=== PATIENT | female | born 1985 | race American Indian/Alaskan Native ===

== ENCOUNTER 2017-04-29 16:07 | Inpatient (IN) | payer MEDICAID ==
--- NOTE | 2017-04-29 16:40 | C.PDOC ---
History Of Present Illness 31 yr old female presents to the ER for suicidal ideation and auditory hallucinations for the past 1 week. Patient states she wanted to take a scarf and wrap it around her neck and states the voices are telling her to hurt herself. Patient reports she has been clean for more then 1 month. Denies HI, fever, chest pain, SOB, nausea, vomiting, weakness or numbness. Time Seen by Provider: 04/29/17 16:28 Chief Complaint (Nursing): Psychiatric Evaluation History Per: Patient History/Exam Limitations: no limitations Onset/Duration Of Symptoms: Days (1 week) Current Symptoms Are (Timing): Still Present Past Medical History Reviewed: Historical Data, Nursing Documentation, Vital Signs Vital Signs: Last Vital Signs Temp 98.8 F 04/29/17 16:10 Pulse 85 04/29/17 16:10 Resp 16 04/29/17 16:10 BP 135/90 04/29/17 16:10 Pulse Ox 98 04/29/17 18:51 - Medical History PMH: Bipolar Disorder Family History: States: No Known Family Hx - Social History Hx Alcohol Use: No Hx Substance Use: No - Immunization History Hx Tetanus Toxoid Vaccination: No Hx Influenza Vaccination: No Hx Pneumococcal Vaccination: No Review Of Systems Except As Marked, All Systems Reviewed And Found Negative. Constitutional: Negative for: Fever Cardiovascular: Negative for: Chest Pain Respiratory: Negative for: Shortness of Breath Gastrointestinal: Negative for: Nausea, Vomiting Neurological: Negative for: Weakness, Numbness Psych: Positive for: Suicidal ideation Physical Exam - Physical Exam Appears: Non-toxic, No Acute Distress Skin: Warm, Dry, No Rash Head: Atraumatic, Normacephalic Oral Mucosa: Moist Cardiovascular: Rhythm Regular, No Murmur Respiratory: Normal Breath Sounds, No Rales, No Rhonchi, No Stridor, No Wheezing Gastrointestinal/Abdominal: Normal Exam Back: Normal Inspection Extremity: Normal ROM, No Swelling Neurological/Psych: Oriented x3, Normal Speech, Normal Motor ED Course And Treatment - Laboratory Results Result Diagrams: 04/29/17 17:11 04/29/17 17:11 O2 Sat by Pulse Oximetry: 98 (RA) Pulse Ox Interpretation: Normal Progress Note: Patient is cleared for crisis. Medical Decision Making Medical Decision Making: PLAN: * Alcohol Serum * Drug Screen * CBC * CMP * Urinalysis case s/o to Dr. Razo pending urine preg and pysch evaluation. Disposition - Disposition Disposition Time: 19:00 Condition: STABLE Forms: [facility] ([place]) - Clinical Impression Clinical Impression: Moderate major depression, single episode - Scribe Statement The provider has reviewed the documentation as recorded by the Scribe Adriana Wilder Provider Attestation: All medical record entries made by the Scribe were at my direction and personally dictated by me. I have reviewed the chart and agree that the record accurately reflects my personal performance of the history, physical exam, medical decision making, and the department course for this patient. I have also personally directed, reviewed, and agree with the discharge instructions and disposition. Physician Patient Turnover - . Patient Signed Over To: Romel Razo Handoff Comments: pending urine preg and crisis evaluation.
[2017-04-29 17:14] LABS: BASO % 0.7 % (0.0-2.0); EOS % 0.8 % (0.0-4.0); HEMOGLOBIN 12.6 g/dL (11.0-16.0); LYMPH # 1.8 K/uL (1.0-4.3); LYMPH % 29.4 % (20.0-40.0); MEAN CORPUSCULAR HGB CONC 33.3 g/dL (33.0-37.0); MEAN PLATELET VOLUME 7.6 fL (7.2-11.7); MONO # 0.4 K/uL (0.0-0.8); MONO % 5.7 % (0.0-10.0); NEUT # 3.9 K/uL (1.8-7.0); NEUT % 63.4 % (50.0-75.0); RBC 3.95 Mil/uL (3.80-5.20); RED CELL DISTRIBUTION WIDTH 14.1 % (11.5-14.5); WHITE BLOOD COUNT 6.1 K/uL (4.8-10.8)
[2017-04-29 17:28] LABS: ALB/GLOB RATIO 1.1 (1.0-2.1); ALBUMIN 4.1 g/dL (3.5-5.0); ALT/SGPT 18 U/L (9-52); AST/SGOT 21 U/L (14-36); BLOOD UREA NITROGEN 12 mg/dL (7-17); CALCIUM 8.6 mg/dl (8.6-10.4); GFR AFRICAN-AMERICAN > 60; GFR NON-AFRICAN AMERICAN > 60
[2017-04-29 17:51] LABS: BARBITURATES, UR NEGATIVE (NEGATIVE); BENZODIAZEPINES, UR NEGATIVE (NEGATIVE); OPIATES, UR NEGATIVE (NEGATIVE); PHENCYCLIDINE, UR NEGATIVE (NEGATIVE); URINE BILIRUBIN NEGATIVE (NEGATIVE); URINE BLOOD 3+ (NEGATIVE); URINE CLARITY Hazy (Clear); URINE COLOR Red (YELLOW); URINE GLUCOSE (UA) NORMAL (Normal); URINE LEUKOCYTE ESTERASE NEG Leu/uL (Negative); URINE NITRATE NEGATIVE (NEGATIVE); URINE PROTEIN 2+ mg/dL (NEGATIVE); URINE UROBILINOGEN NORMAL mg/dL (0.2-1.0)
--- NOTE | 2017-04-29 20:35 | PCM.BM ---
<Laura Meredith - Last Filed: 04/29/17 20:31> Treatment Plan Problems - Problems identified on initial assessmt depression Date Initiated: 04/29/17 Time Initiated: 20:35 Assessment reference: NA Status: Active Treatment assets and liabiliti Patient Assests: adapts well, cooperative, educated, motivated, ADL independent , good support system, cognitively intact Patient Liabilities: substance abuse <Som Browning - Last Filed: 05/03/17 10:45> - Diagnosis (1) Bipolar 1 disorder Status: Acute Interventions: 05/03/17 10:45 * Assess/adjust medications daily and /or as needed * See patient on an individual basis 7x/week to assess level of manic behaviors and stability * Discuss risks, benefits, side effects and alternatives of medications * <Waleska Dumont - Last Filed: 05/04/17 10:55> Family Contact Family involvement: Famliy/SO not involved - Goals for Treatment Patient goals for treatment: "I want to go back to rehab." Discharge/Continuing Care - Education Needs Education Needs: Patient Medication, Patient Coping Skills, Patient Placement options, Patient Community resources - Discharge Discharge Criteria: Tolerates medication w/o severe side effects, Reduction of target symptoms Discharge to:: Substance Abuse Rehab - Treatment Team Participation Discussed with Family/SO: No Was Patient/Family/SO present at Treatment Team Meeting: Yes
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
--- NOTE | 2017-05-01 16:58 | PCM.PYCHPN ---
Psychiatric Progress Note - Psychiatric Progress Note Patient seen today, length of contact: 15 minutes Patient Chief Complaint: I'm feeling better Problems Identified/Issues Discussed: Patient was seen. Chart was reviewed important content noted. Nurse input received that patient slept well last night. Patient has no new complaints. No events overnight. Patient slept well and is eating well. Patient still has depressive symptoms. Denies suicidal or homicidal ideations. Patient does not report hallucinations. No delusions elicited. No paranoia elicited. Patient has remained in good clinical and behavioral control. Symptoms are improving, but needs more time to stabilize. Patient is finding medications beneficial and would like to continue with treatment plan. Patient appreciated that treatment team is trying to help. Medication Change: Yes Medical Record Reviewed: Yes Mental Status Examination - Cognitive Function Orientation: Person, Place, Situation, Time Memory: Intact Attention: WNL Concentration: WNL Association: WNL Fund of Knowledge: [facility] Decription of patient's judgement and insights: good/good. - Mood Mood: Depressed, Anxious - Affect Affect: Constricted - Speech Speech: Appropriate - Formal Thought Process Formal Thought Process: No Impairment Psychotic Thoughts and Behaviors: denied - Suicidal Ideation Suicidal Ideation: No Plan: denied - Homicidal Ideation Homicidal Ideation: No Plan: denied Goal/Treatment Plan - Goal/Treatment Plan Need for Continued Stay: Discharge may exacerbated symptoms, Severe functional impairment Progress Toward Problem(s) and Goals/Treatment Plan: Continue Abilify increase Prozac 80 mg po daily increaseRemeron As needed meds Psycho-education was provided regarding medication, benefits, risks, and alternate medication was offered. Pt verbalized understanding and agree with the treatment plan. Attend groups and activities [place] for abstinence and CBT for relapse prevention Support and psychoeducation Refer to after care Estimated Date of D/C: 05/03/17 - Smoking Cessation Smoking Cessation Initiated: Yes
--- NOTE | 2017-05-02 11:50 | PCM.PYCHPN ---
Psychiatric Progress Note - Psychiatric Progress Note Patient seen today, length of contact: 15 minutes Patient Chief Complaint: I am feeling more calm here Problems Identified/Issues Discussed: Patient was seen. Chart was reviewed important content noted. Nurse input received that patient slept well last night. Patient has no new complaints. No events overnight. Patient slept well and is eating well. Patient still has depressive symptoms.Patient states that her anxiety is calmer here than at [facility] [place] because there are less people. Denies suicidal or homicidal ideations. Patient does not report hallucinations. No delusions elicited. No paranoia elicited. Patient has remained in good clinical and behavioral control. Symptoms are improving, but needs more time to stabilize. Patient is finding medications beneficial and would like to continue with treatment plan. Patient appreciated that treatment team is trying to help Medication Change: Yes Medical Record Reviewed: Yes Mental Status Examination - Cognitive Function Orientation: Person, Place, Situation, Time Memory: Intact Attention: WNL Concentration: Poor Association: WNL Fund of Knowledge: Poor - Mood Mood: Depressed, Anxious - Affect Affect: Constricted - Speech Speech: Appropriate - Formal Thought Process Formal Thought Process: Hallucinations - Suicidal Ideation Suicidal Ideation: No - Homicidal Ideation Homicidal Ideation: No Goal/Treatment Plan - Goal/Treatment Plan Need for Continued Stay: Discharge may exacerbated symptoms, Severe functional impairment Progress Toward Problem(s) and Goals/Treatment Plan: Bipolar disorder, mre depressive with psychotic features. CURT Continue Abilify Start Prozac 20 mg po daily Continue Remeron As needed meds Psycho-education was provided regarding medication, benefits, risks, and alternate medication was offered. Pt verbalized understanding and agree with the treatment plan. Attend groups and activities [place] for abstinence and CBT for relapse prevention Support and psychoeducation Refer to after care Estimated Date of D/C: 05/09/17 - Smoking Cessation Smoking Cessation Initiated: No
--- NOTE | 2017-05-04 10:13 | PCM.PYCHPN ---
Psychiatric Progress Note - Psychiatric Progress Note Patient seen today, length of contact: 15 minutes Patient Chief Complaint: I am feeling more calm here Problems Identified/Issues Discussed: Patient was seen. Chart was reviewed important content noted. Nurse input received that patient slept well last night. Patient has no new complaints. No events overnight. Patient slept well and is eating well. Patient still has depressive symptoms.Patient states that her anxiety is calmer here than at [facility] [place] because there are less people. Denies suicidal or homicidal ideations. Patient does not report hallucinations. No delusions elicited. No paranoia elicited. Patient has remained in good clinical and behavioral control. Symptoms are improving, but needs more time to stabilize. Patient is finding medications beneficial and would like to continue with treatment plan. Patient appreciated that treatment team is trying to help Medication Change: Yes (start lithium, increase risperdal) Medical Record Reviewed: Yes Mental Status Examination - Cognitive Function Orientation: Person, Place, Situation, Time Memory: Intact Attention: WNL Concentration: Poor Association: Loose Fund of Knowledge: WNL - Mood Mood: Depressed, Anxious - Affect Affect: Constricted - Speech Speech: Appropriate - Formal Thought Process Formal Thought Process: Hallucinations, Delusions, Paranoia - Suicidal Ideation Suicidal Ideation: No - Homicidal Ideation Homicidal Ideation: No Goal/Treatment Plan - Goal/Treatment Plan Need for Continued Stay: Discharge may exacerbated symptoms, Severe functional impairment Progress Toward Problem(s) and Goals/Treatment Plan: Bipolar disorder, mre depressive with psychotic features. CURT Start Prozac 20 mg po daily Continue Remeron As needed meds Psycho-education was provided regarding medication, benefits, risks, and alternate medication was offered. Pt verbalized understanding and agree with the treatment plan. Attend groups and activities [place] for abstinence and CBT for relapse prevention Support and psychoeducation Refer to after care Estimated Date of D/C: 05/03/17
--- NOTE | 2017-05-04 11:00 | PCM.PYCHPN ---
Psychiatric Progress Note - Psychiatric Progress Note Patient seen today, length of contact: 15 minutes Patient Chief Complaint: I am feeling more calm here Problems Identified/Issues Discussed: Patient was seen. Chart was reviewed important content noted. Nurse input received that patient slept well last night. Patient has no new complaints. No events overnight. Patient slept well and is eating well. Patient still has depressive symptoms.Patient states that her anxiety is calmer here than at [facility] because there are less people. Denies suicidal or homicidal ideations. Patient does not report hallucinations. No delusions elicited. No paranoia elicited. Patient has remained in good clinical and behavioral control. Symptoms are improving, but needs more time to stabilize. Patient is finding medications beneficial and would like to continue with treatment plan. Patient appreciated that treatment team is trying to help Medication Change: Yes Medical Record Reviewed: Yes Mental Status Examination - Cognitive Function Orientation: Person, Place, Situation, Time Memory: Intact Attention: WNL Concentration: WNL Association: WNL Fund of Knowledge: WNL - Mood Mood: Depressed, Anxious - Affect Affect: Constricted - Speech Speech: Appropriate - Formal Thought Process Formal Thought Process: No Impairment - Suicidal Ideation Suicidal Ideation: No - Homicidal Ideation Homicidal Ideation: No Goal/Treatment Plan - Goal/Treatment Plan Need for Continued Stay: Discharge may exacerbated symptoms, Severe functional impairment Progress Toward Problem(s) and Goals/Treatment Plan: Bipolar disorder, mre depressive with psychotic features. CURT Continue Abilify Start Prozac 20 mg po daily Continue Remeron As needed meds Psycho-education was provided regarding medication, benefits, risks, and alternate medication was offered. Pt verbalized understanding and agree with the treatment plan. Attend groups and activities [place] for abstinence and CBT for relapse prevention Support and psychoeducation Refer to after care Estimated Date of D/C: 05/03/17
--- NOTE | 2017-05-05 16:06 | PCM.PYCHPN ---
Psychiatric Progress Note - Psychiatric Progress Note Patient seen today, length of contact: 15 minutes Patient Chief Complaint: I am feeling more calm here Problems Identified/Issues Discussed: Patient was seen. Chart was reviewed important content noted. Nurse input received that patient slept well last night. Patient has no new complaints. No events overnight. Patient slept well and is eating well. Patient still has depressive symptoms.Patient states that her anxiety is calmer here than at [place] because there are less people. Denies suicidal or homicidal ideations. Patient does not report hallucinations. No delusions elicited. No paranoia elicited. Patient has remained in good clinical and behavioral control. Symptoms are improving, but needs more time to stabilize. Patient is finding medications beneficial and would like to continue with treatment plan. Patient appreciated that treatment team is trying to help Medication Change: Yes (start lithium, increase risperdal) Medical Record Reviewed: Yes Mental Status Examination - Cognitive Function Orientation: Person, Place, Situation, Time Memory: Intact Attention: WNL Concentration: WNL Association: WNL Fund of Knowledge: WNL - Mood Mood: Depressed, Anxious - Affect Affect: Constricted - Speech Speech: Appropriate - Formal Thought Process Formal Thought Process: No Impairment - Suicidal Ideation Suicidal Ideation: No - Homicidal Ideation Homicidal Ideation: No Goal/Treatment Plan - Goal/Treatment Plan Need for Continued Stay: Discharge may exacerbated symptoms, Severe functional impairment Progress Toward Problem(s) and Goals/Treatment Plan: Bipolar disorder, mre depressive with psychotic features. CURT Start Prozac 20 mg po daily Continue Remeron As needed meds Psycho-education was provided regarding medication, benefits, risks, and alternate medication was offered. Pt verbalized understanding and agree with the treatment plan. Attend groups and activities [place] for abstinence and CBT for relapse prevention Support and psychoeducation Refer to after care Estimated Date of D/C: 05/03/17
[2017-05-07 06:49] VITALS: RESP 18; TEMP 98.1
[2017-05-08 10:41] VITALS: O2SAT 98
--- NOTE | 2017-05-08 13:35 | PCM.PYCHPN ---
Psychiatric Progress Note - Psychiatric Progress Note Patient seen today, length of contact: 15 minutes Patient Chief Complaint: I am feeling more calm here Problems Identified/Issues Discussed: Patient was seen. Chart was reviewed important content noted. Nurse input received that patient slept well last night. Patient has no new complaints. No events overnight. Patient slept well and is eating well. Patient still has depressive symptoms.Patient states that her anxiety is calmer here than at [place] because there are less people. Denies suicidal or homicidal ideations. Patient does not report hallucinations. No delusions elicited. No paranoia elicited. Patient has remained in good clinical and behavioral control. Symptoms are improving, but needs more time to stabilize. Patient is finding medications beneficial and would like to continue with treatment plan. Patient appreciated that treatment team is trying to help Medication Change: Yes (stop prozac) Medical Record Reviewed: Yes Mental Status Examination - Cognitive Function Orientation: Person, Place, Situation, Time Memory: Intact Attention: WNL Concentration: WNL Association: WNL Fund of Knowledge: WNL - Mood Mood: Depressed, Anxious - Affect Affect: Constricted - Speech Speech: Appropriate - Formal Thought Process Formal Thought Process: No Impairment - Suicidal Ideation Suicidal Ideation: No - Homicidal Ideation Homicidal Ideation: No Goal/Treatment Plan - Goal/Treatment Plan Need for Continued Stay: Discharge may exacerbated symptoms, Severe functional impairment Progress Toward Problem(s) and Goals/Treatment Plan: Bipolar disorder, mre depressive with psychotic features. CURT Start Prozac 20 mg po daily Continue Remeron As needed meds Psycho-education was provided regarding medication, benefits, risks, and alternate medication was offered. Pt verbalized understanding and agree with the treatment plan. Attend groups and activities [place] for abstinence and CBT for relapse prevention Support and psychoeducation Refer to after care Estimated Date of D/C: 05/03/17
[2017-05-08 16:39] VITALS: PULSE 83
[2017-05-09 09:30] VITALS: BP 103/67
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
== END 2017-05-09 11:54 | disposition home or self-care (01) | DRG 430 ==
LOC: C.ER 16:07 → C.5E 19:24
PROVIDERS: ADMIT Psychiatry & Neurology Psychiatry; ATTEND Psychiatry & Neurology Psychiatry
PROC: GZHZZZZ Group Psychotherapy (ICD-10-PCS; principal; 2017-04-29)
PROC: GZ58ZZZ Individual Psychotherapy, Cognitive-Behavioral (ICD-10-PCS; 2017-04-29)
PROC: GZ56ZZZ Individual Psychotherapy, Supportive (ICD-10-PCS; 2017-04-29)
DX: F31.5 Bipolar disorder, current episode depressed, severe, with psychotic features (principal); R45.851 Suicidal ideations; F41.1 Generalized anxiety disorder

== ENCOUNTER 2017-06-15 09:41 | Inpatient (IN) | payer MEDICAID ==
[2017-06-15 10:02] VITALS: BMI 28.4
--- NOTE | 2017-06-15 10:36 | C.PDOC ---
History Of Present Illness 31 year old female brought in for psychiatric evaluation. Reports taking her psychiatric medications. Has been having suicidal thoughts on and off for 1 month. No physical complaints at this time. PMD: None Time Seen by Provider: 06/15/17 09:52 Chief Complaint (Nursing): Psychiatric Evaluation History Per: Patient History/Exam Limitations: no limitations Onset/Duration Of Symptoms: Days (x 1 month) Current Symptoms Are (Timing): Still Present Associated Symptoms: Suicidal Thoughts Past Medical History Reviewed: Historical Data, Nursing Documentation, Vital Signs Vital Signs: Last Vital Signs Temp 99.0 F 06/15/17 09:45 Pulse 78 06/15/17 09:45 Resp 16 06/15/17 09:45 BP 105/68 06/15/17 09:45 Pulse Ox 98 06/15/17 10:40 - Medical History PMH: Bipolar Disorder, Depression Surgical History: No Surg Hx Other Surgeries: Surgery for ectopic - [facility] Procedures GROUP PSYCHOTHERAPY (04/29/17) INDIVIDUAL PSYCHOTHERAPY, COGNITIVE-BEHAVIORAL (04/29/17) INDIVIDUAL PSYCHOTHERAPY, SUPPORTIVE (04/29/17) Family History: States: No Known Family Hx - Social History Hx Alcohol Use: No Hx Substance Use: Yes - Immunization History Hx Tetanus Toxoid Vaccination: No Hx Influenza Vaccination: No Hx Pneumococcal Vaccination: No Review Of Systems Except As Marked, All Systems Reviewed And Found Negative. Constitutional: Negative for: Fever Cardiovascular: Negative for: Chest Pain Respiratory: Negative for: Shortness of Breath Psych: Positive for: Suicidal ideation Physical Exam - Physical Exam Appears: Non-toxic, No Acute Distress Skin: Normal Color, Warm, Dry Head: Atraumatic, Normacephalic Eye(s): bilateral: Normal Inspection, PERRL, EOMI Oral Mucosa: Moist Neck: Normal ROM, Supple Chest: Symmetrical Cardiovascular: Rhythm Regular, No Murmur Respiratory: Normal Breath Sounds, No Accessory Muscle Use Gastrointestinal/Abdominal: Normal Exam, Soft, No Tenderness Back: Normal Inspection, No Vertebral Tenderness Extremity: Bilateral: Atraumatic, Normal Color And Temperature, Normal ROM Neurological/Psych: Oriented x3, Normal Speech Gait: Steady ED Course And Treatment - Laboratory Results Result Diagrams: 06/15/17 10:27 06/15/17 10:27 Lab Interpretation: Normal O2 Sat by Pulse Oximetry: 98 (RA) Pulse Ox Interpretation: Normal Progress Note: Patient on 1:1. Case discussed and patient evaluated by crisis department who request admission to psych Reassessment Condition: Unchanged - Physician Consult Information Physician Contacted: Som Borwning Outcome Of Conversation: admit Medical Decision Making Medical Decision Making: Time: 10:03 Initial Plan: * Blood work * Urine drug screen * Urinalysis * Placed on 1:1 observation * Crisis evaluation Disposition Discussed With : Som Browning Doctor Will See Patient In The: Hospital - Disposition Disposition: HOSPITALIZED Disposition Time: 13:00 Condition: STABLE Forms: [facility] (Japanese) - POA Present On Arrival: None - Clinical Impression Clinical Impression: Bipolar 1 disorder - 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 - Scribe Statement The provider has reviewed the documentation as recorded by the Scribe (Juliet Larkin) All medical record entries made by the Scribe were at my direction and personally dictated by me. I have reviewed the chart and agree that the record accurately reflects my personal performance of the history, physical exam, medical decision making, and the department course for this patient. I have also personally directed, reviewed, and agree with the discharge instructions and disposition.
[2017-06-15 10:41] LABS: HCG,QUALITATIVE URINE NEGATIVE (NEGATIVE)
[2017-06-15 10:42] LABS: BASO % 0.3 % (0.0-2.0); EOS # 0.2 K/uL (0.0-0.7); EOS % 3.2 % (0.0-4.0); HEMOGLOBIN 12.2 g/dL (11.0-16.0); LYMPH # 1.7 K/uL (1.0-4.3); LYMPH % 25.7 % (20.0-40.0); MEAN CELL VOLUME 93.6 fL (81.0-99.0); MEAN CORPUSCULAR HGB CONC 34.1 g/dL (33.0-37.0); MEAN PLATELET VOLUME 7.4 fL (7.2-11.7); MONO # 0.4 K/uL (0.0-0.8); MONO % 6.3 % (0.0-10.0); NEUT # 4.2 K/uL (1.8-7.0); NEUT % 64.5 % (50.0-75.0); RBC 3.81 Mil/uL (3.80-5.20); RED CELL DISTRIBUTION WIDTH 13.6 % (11.5-14.5); WHITE BLOOD COUNT 6.6 K/uL (4.8-10.8)
[2017-06-15 10:52] LABS: SQUAMOUS EPITHIAL 4 /hpf (0-5); URINE BILIRUBIN NEGATIVE (NEGATIVE); URINE BLOOD NEGATIVE (NEGATIVE); URINE CLARITY Clear (Clear); URINE COLOR Yellow (YELLOW); URINE GLUCOSE (UA) NORMAL (Normal); URINE HYALINE CAST 0-2 /lpf (0-2); URINE LEUKOCYTE ESTERASE NEG Leu/uL (Negative); URINE NITRATE NEGATIVE (NEGATIVE); URINE PROTEIN NEGATIVE (NEGATIVE); URINE UROBILINOGEN NORMAL mg/dL (0.2-1.0)
[2017-06-15 10:57] LABS: ALB/GLOB RATIO 1.2 (1.0-2.1); ALT/SGPT 20 U/L (9-52); AST/SGOT 25 U/L (14-36); BLOOD UREA NITROGEN 11 mg/dL (7-17); CALCIUM 9.7 mg/dl (8.6-10.4); GFR AFRICAN-AMERICAN > 60; GFR NON-AFRICAN AMERICAN > 60
[2017-06-15 11:05] LABS: ALBUMIN 4.1 g/dL (3.5-5.0)
[2017-06-15 11:36] LABS: BARBITURATES, UR NEGATIVE (NEGATIVE); BENZODIAZEPINES, UR NEGATIVE (NEGATIVE); OPIATES, UR NEGATIVE (NEGATIVE); PHENCYCLIDINE, UR NEGATIVE (NEGATIVE)
[2017-06-15] MEDS ORDERED: Pneumococcal 23-Valent Vaccine IM ONE (16:13)
--- NOTE | 2017-06-15 21:49 | PCM.BM ---
<Patricia Donaldson - Last Filed: 06/15/17 21:47> Treatment Plan Problems - Problems identified on initial assessmt Depression Date Initiated: 06/15/17 Time Initiated: 14:30 Assessment reference: NA Status: Active Suicidal Ideation Date Initiated: 06/15/17 Time Initiated: 14:30 Status: Monitor Treatment assets and liabiliti Patient Assests: adapts well, cooperative, educated, motivated, ADL independent , good support system, cognitively intact Patient Liabilities: poor support system, substance abuse - Milieu Protocol Maintain good personal hygiene: daily Encourage regular showers, daily Remind patient to perform daily oral care Conduct patient checks and document Observation sheet: Q15 minutes Maintain personal safety: every shift Educate patient to report safety concerns to staff, every shift Monitor environment for contraband/sharps Medication safety: Monitor for expected outcome, potential side effects: every shift, Assess barriers to learning: every shift, Assess readiness for medication education: every shift <Tenzin Zayas - Last Filed: 06/16/17 13:26> - Diagnosis (1) Bipolar disorder, now depressed Status: Acute Interventions: 06/16/17 13:26 * Assess/adjust medications daily and /or as needed * See patient on an individual basis 7x/week to assess symptoms of depression * Monitor for side effects & effectiveness of medications * (2) Cocaine use disorder, severe, dependence Status: Acute Interventions: 06/16/17 13:27 * Assess 7x/week regarding caving * Educate regarding risks, benefits, side effects and alternatives of medications * Use Motivational Interviewing for abstinence * Use CBT for relapse prevention (3) Post traumatic stress disorder (PTSD) Status: Acute Interventions: 06/16/17 13:27 * Assess/adjust medications daily and /or as needed * See patient on an individual basis 7x/week to assess symptoms of anxiety * Educate patient regarding benefits, side effects and risks of prescribed medications * <Waleska Dumont - Last Filed: 06/17/17 10:31> Family Contact Family involvement: Family/SO is involved Family contact: Patient declines to allow family contact at present - Goals for Treatment Patient goals for treatment: "I need my meds." Discharge/Continuing Care - Education Needs Education Needs: Patient Medication, Patient Coping Skills - Discharge Discharge Criteria: Tolerates medication w/o severe side effects, Free of Suicidal thoughts, Reduction of target symptoms Discharge to:: Substance Abuse Rehab - Treatment Team Participation Discussed with Family/SO: No Was Patient/Family/SO present at Treatment Team Meeting: Yes
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
[2017-06-17 08:54] LABS: FREE T4 0.54 ng/dL (0.78-2.19)
--- NOTE | 2017-06-17 13:58 | PCM.PYCHPN ---
Psychiatric Progress Note - Psychiatric Progress Note Patient seen today, length of contact: 17 min Patient Chief Complaint: "Depressed" Problems Identified/Issues Discussed: The pt is seen, chart reviewed, case discussed with staff. The pt is compliant with medications and reports no side-effects. Symptoms are improving but needs more time to stabilize. After care discussed, support and psychoeducation given. No longer suicidal but still depressed She is upset that her family wants her stay 6 months in rehab, where she dislikes, but how to negotiate and overcome this discussed. Medication Change: Yes Medical Record Reviewed: Yes Mental Status Examination - Cognitive Function Orientation: Person, Place, Situation, Time Memory: Intact Attention: WNL Concentration: Poor Association: WNL Fund of Knowledge: WNL - Mood Mood: Depressed, Anxious - Affect Affect: Constricted - Formal Thought Process Formal Thought Process: No Impairment - Suicidal Ideation Suicidal Ideation: No - Homicidal Ideation Homicidal Ideation: No Goal/Treatment Plan - Goal/Treatment Plan Need for Continued Stay: Discharge may exacerbated symptoms, Severe functional impairment Progress Toward Problem(s) and Goals/Treatment Plan: Lexapro for depression Continue [place] and Risperdal for now Li level is 1.0 - will repeat next week Vit D is low - started All risks, benefits and alternatives of the meds discussed, and the pt agreed and understood. Attend groups and activities Individual therapy daily Psychoeducation and support daily Encourage compliance with meds and after care MO and CBt for cocaine, MJ and ecstasy Refer back to [facility] Teach healthy lifestyle methods, i.e. diet, exercise, meditation Smoking cessation and patch
[2017-06-17] MEDS: Ergocalciferol 50,000 Intl Units Cap PO SCH (14:48)
[2017-06-18] MEDS ORDERED: Pneumococcal 23-Valent Vaccine IM ONE (10:00)
--- NOTE | 2017-06-19 17:47 | PCM.PYCHPN ---
Psychiatric Progress Note - Psychiatric Progress Note Patient seen today, length of contact: 15 minutes Patient Chief Complaint: I'm feeling better. Problems Identified/Issues Discussed: Patient seen, chart reviewed, case discussed with the staff. Issues related to illness and treatment were discussed with the patient. Reported compliant with treatment with no adverse affects. Tolerating treatment very well. Patient reported feeling better with the treatment. At the time of evaluation, patient was awake alert oriented 3, had no delusions , no auditory or visual hallucinations, no suicidal ideations or homicidal ideations. Aftercare discussed with the patient. Medical Problems: None reported Diagnostic Results: Review DSM 5 Symptoms Update: Improving with treatment Medication Change: No Medical Record Reviewed: Yes Mental Status Examination - Cognitive Function Orientation: Person, Place, Situation, Time Memory: Intact Attention: WNL Concentration: WNL Association: WNL Fund of Knowledge: [facility] Decription of patient's judgement and insights: Fair - Mood Mood: Neutral - Affect Affect: Other (Appropriate) - Speech Speech: Soft - Formal Thought Process Formal Thought Process: No Impairment Psychotic Thoughts and Behaviors: None - Suicidal Ideation Suicidal Ideation: No - Homicidal Ideation Homicidal Ideation: No Goal/Treatment Plan - Goal/Treatment Plan Need for Continued Stay: Remain at risks for inpatient hospitalization, Discharge may exacerbated symptoms, Severe functional impairment Progress Toward Problem(s) and Goals/Treatment Plan: Patient education Supportive therapy Continue treatment as before [facility] discharge from the hospital for follow- up care. Estimated Date of D/C: 06/22/17 - Smoking Cessation Smoking Cessation Initiated: No
--- NOTE | 2017-06-20 11:13 | PCM.PYCHPN ---
Psychiatric Progress Note - Psychiatric Progress Note Patient seen today, length of contact: 15 minutes Medication Change: No Medical Record Reviewed: Yes Mental Status Examination - Cognitive Function Orientation: Person, Place, Situation, Time Memory: Intact Attention: WNL Concentration: WNL Association: WNL Fund of Knowledge: WNL - Mood Mood: Neutral - Affect Affect: Other (Appropriate) - Speech Speech: Soft - Formal Thought Process Formal Thought Process: No Impairment - Suicidal Ideation Suicidal Ideation: No - Homicidal Ideation Homicidal Ideation: No Goal/Treatment Plan - Goal/Treatment Plan Need for Continued Stay: Remain at risks for inpatient hospitalization, Discharge may exacerbated symptoms, Severe functional impairment Estimated Date of D/C: 06/22/17
--- NOTE | 2017-06-20 13:11 | PCM.PYCHPN ---
Psychiatric Progress Note - Psychiatric Progress Note Patient seen today, length of contact: 16 minutes Patient Chief Complaint: "Im doing okay" Problems Identified/Issues Discussed: The pt is seen, chart reviewed, case discussed with staff. The pt is compliant with medications and reports no side-effects. Symptoms are improving but needs more time to stabilize. After care discussed, support and psychoeducation given. No longer suicidal but still depressed. She complains of a mild hand tremor. She also states she is very forgetful recently and has a very dry mouth with increased thirst. She attributes this new forgetfulness to her recent medication changes. She is not sleeping well and wakes up in the early hours of the morning unable to fall asleep again. She reports speaking to her cousin yesterday, who has custody of her child, regarding length of stay in rehab. She still plans on going to [facility]. Medication Change: Yes (psych changes) Medical Record Reviewed: Yes Mental Status Examination - Cognitive Function Orientation: Person, Place, Situation, Time Memory: Intact Attention: WNL Concentration: WNL Association: WNL Fund of Knowledge: WNL - Mood Mood: Neutral - Affect Affect: Other (Appropriate) - Speech Speech: Soft - Language Language: Word Retrieval - Formal Thought Process Formal Thought Process: No Impairment - Suicidal Ideation Suicidal Ideation: No - Homicidal Ideation Homicidal Ideation: No Goal/Treatment Plan - Goal/Treatment Plan Need for Continued Stay: Remain at risks for inpatient hospitalization, Discharge may exacerbated symptoms, Severe functional impairment Progress Toward Problem(s) and Goals/Treatment Plan: Lexapro for depression Continue [place] and Risperdal for now Li level is 1.0 - will repeat next week Vit D is low - started All risks, benefits and alternatives of the meds discussed, and the pt agreed and understood. Attend groups and activities Individual therapy daily Psychoeducation and support daily Encourage compliance with meds and after care MT and CBt for cocaine, MJ and ecstasy Refer back to [facility] Teach healthy lifestyle methods, i.e. diet, exercise, meditation Smoking cessation and patch Estimated Date of D/C: 06/22/17 - Smoking Cessation Smoking Cessation Initiated: Yes
--- NOTE | 2017-06-21 13:42 | PCM.PYCHPN ---
Psychiatric Progress Note - Psychiatric Progress Note Patient seen today, length of contact: 15 minutes Patient Chief Complaint: "Im blah today" Problems Identified/Issues Discussed: The pt is seen, chart reviewed, case discussed with staff. Support given, CBT and KS used briefly No new symptoms reported, improving slowly and needs more time. She still reports being forgetful. She needed to call her cousin yesterday who is taking care of her daughter but forgot to do so. She will attempt to call again today. She denies hearing voices but notes she has heard voices in the past. She was educated on positive thinking but states she "cant think positive at all." No SEs from medications, risks discussed. After care discussed Medication Change: Yes (psych changes) Medical Record Reviewed: Yes Mental Status Examination - Cognitive Function Orientation: Person, Place, Situation, Time Memory: Intact Attention: WNL Concentration: WNL Association: WNL Fund of Knowledge: WNL - Mood Mood: Neutral - Affect Affect: Constricted - Speech Speech: Soft - Language Language: Word Retrieval - Formal Thought Process Formal Thought Process: No Impairment - Suicidal Ideation Suicidal Ideation: No - Homicidal Ideation Homicidal Ideation: No Goal/Treatment Plan - Goal/Treatment Plan Need for Continued Stay: Remain at risks for inpatient hospitalization, Discharge may exacerbated symptoms, Severe functional impairment Progress Toward Problem(s) and Goals/Treatment Plan: Lexapro for depression Continue [place] and Risperdal for now Li level is 1.0 again, will decrease to 900 mg/d Vit D is low - started All risks, benefits and alternatives of the meds discussed, and the pt agreed and understood. Attend groups and activities Individual therapy daily Psychoeducation and support daily Encourage compliance with meds and after care [place] and CBt for cocaine, MJ and ecstasy Refer back to [facility] Teach healthy lifestyle methods, i.e. diet, exercise, meditation Smoking cessation and patch Estimated Date of D/C: 06/23/17 If changed, why: still depressed - Smoking Cessation Smoking Cessation Initiated: No Reason for not providing: does not smoke
[2017-06-21] MEDS ORDERED: Lithium Carbonate ER Tab 450 MG PO SCH (18:00)
[2017-06-22] MEDS: Lithium Carbonate ER Tab 450 MG PO SCH ×2 (10:38→21:05)
--- NOTE | 2017-06-22 13:42 | PCM.PYCHPN ---
Psychiatric Progress Note - Psychiatric Progress Note Patient seen today, length of contact: 16 minutes Patient Chief Complaint: "Im doing much better today" Problems Identified/Issues Discussed: The pt is seen, chart reviewed, case discussed with staff. Support given, CBT and [place] used briefly No new symptoms reported, improving slowly and needs more time. She slept well and is eating. Per nursing staff the patient is more social and interactive. She states her mood has improved but is still forgetful. No SEs from medications, risks discussed. After care discussed. She is going to [facility]. Medication Change: Yes (psych changes) Medical Record Reviewed: Yes Mental Status Examination - Cognitive Function Orientation: Person, Place, Situation, Time Memory: Intact Attention: WNL Concentration: WNL Association: WNL Fund of Knowledge: WNL - Mood Mood: Neutral - Affect Affect: Constricted - Speech Speech: Soft - Language Language: Word Retrieval - Formal Thought Process Formal Thought Process: No Impairment - Suicidal Ideation Suicidal Ideation: No - Homicidal Ideation Homicidal Ideation: No Goal/Treatment Plan - Goal/Treatment Plan Need for Continued Stay: Remain at risks for inpatient hospitalization, Discharge may exacerbated symptoms, Severe functional impairment Progress Toward Problem(s) and Goals/Treatment Plan: Lexapro for depression Continue [place] and Risperdal for now Li level is 1.0 again, will decrease to 900 mg/d Vit D is low - started All risks, benefits and alternatives of the meds discussed, and the pt agreed and understood. Attend groups and activities Individual therapy daily Psychoeducation and support daily Encourage compliance with meds and after care [place] and CBt for cocaine, MJ and ecstasy Refer back to [facility] Teach healthy lifestyle methods, i.e. diet, exercise, meditation Smoking cessation and patch Estimated Date of D/C: 06/23/17
[2017-06-23] MEDS: Lithium Carbonate ER Tab 450 MG PO SCH ×2 (10:21→21:18)
--- NOTE | 2017-06-23 11:23 | PCM.PYCHPN ---
Psychiatric Progress Note - Psychiatric Progress Note Patient seen today, length of contact: 16 minutes Patient Chief Complaint: "Im doing much better today" Problems Identified/Issues Discussed: The pt is seen, chart reviewed, case discussed with staff. DC cancelled bc she is again "more depressed" Not suicidal but she will likely come back if she goes like this More support given She agreed to go on Tuesday bc will be there too And procedure writer adjusted her meds Medication Change: Yes (meds increased) Medical Record Reviewed: Yes Mental Status Examination - Cognitive Function Orientation: Person, Place, Situation, Time Memory: Intact Attention: WNL Concentration: WNL Association: WNL Fund of Knowledge: WNL - Mood Mood: Neutral - Affect Affect: Constricted - Speech Speech: Soft - Language Language: Word Retrieval - Formal Thought Process Formal Thought Process: No Impairment - Suicidal Ideation Suicidal Ideation: No - Homicidal Ideation Homicidal Ideation: No Goal/Treatment Plan - Goal/Treatment Plan Need for Continued Stay: Remain at risks for inpatient hospitalization, Discharge may exacerbated symptoms, Severe functional impairment Progress Toward Problem(s) and Goals/Treatment Plan: Lexapro for depression Continue [place] and Risperdal for now Li level is 900 mg/d Vit D is low - started All risks, benefits and alternatives of the meds discussed, and the pt agreed and understood. Attend groups and activities Individual therapy daily Psychoeducation and support daily Encourage compliance with meds and after care [place] and CBt for cocaine, MJ and ecstasy Refer back to [facility] Teach healthy lifestyle methods, i.e. diet, exercise, meditation Smoking cessation and patch Estimated Date of D/C: 06/27/17
[2017-06-24] MEDS: Lithium Carbonate ER Tab 450 MG PO SCH ×2 (09:04→21:10)
--- NOTE | 2017-06-24 10:55 | PCM.BM ---
<Waleska Dumont - Last Filed: 06/24/17 11:18> Treatment Plan Problems - Problems identified on initial assessmt Depression Date Initiated: 06/15/17 Time Initiated: 14:30 Assessment reference: NA Status: Active Suicidal Ideation Date Initiated: 06/15/17 Time Initiated: 14:30 Status: Monitor Treatment assets and liabiliti Patient Assests: adapts well, cooperative, educated, motivated, ADL independent , good support system, cognitively intact Patient Liabilities: poor support system, substance abuse - Milieu Protocol Maintain good personal hygiene: daily Encourage regular showers, daily Remind patient to perform daily oral care Conduct patient checks and document Observation sheet: Q15 minutes Maintain personal safety: every shift Educate patient to report safety concerns to staff, every shift Monitor environment for contraband/sharps Medication safety: Monitor for expected outcome, potential side effects: every shift, Assess barriers to learning: every shift, Assess readiness for medication education: every shift Milieu Narrative: Lexapro for depression Continue [place] and Risperdal for now Li level is 900 mg/d Vit D is low - started All risks, benefits and alternatives of the meds discussed, and the pt agreed and understood. Attend groups and activities Individual therapy daily Psychoeducation and support daily Encourage compliance with meds and after care [place] and CBt for cocaine, MJ and ecstasy Refer back to [facility] Teach healthy lifestyle methods, i.e. diet, exercise, meditation Smoking cessation and patch Family Contact Family involvement: Family/SO is involved Family contact: Patient declines to allow family contact at present - Goals for Treatment Patient goals for treatment: "I need my meds." Discharge/Continuing Care - Education Needs Education Needs: Patient Medication, Patient Coping Skills - Discharge Discharge Criteria: Tolerates medication w/o severe side effects, Free of Suicidal thoughts, Reduction of target symptoms Discharge to:: Substance Abuse Rehab - Treatment Team Participation Patient/Family/SO Statement: Lexapro for depression Continue [place] and Risperdal for now Li level is 900 mg/d Vit D is low - started All risks, benefits and alternatives of the meds discussed, and the pt agreed and understood. Attend groups and activities Individual therapy daily Psychoeducation and support daily Encourage compliance with meds and after care [place] and CBt for cocaine, MJ and ecstasy Refer back to [facility] Teach healthy lifestyle methods, i.e. diet, exercise, meditation Smoking cessation and patch Discussed with Family/SO: No Was Patient/Family/SO present at Treatment Team Meeting: Yes Treatment Plan Review - Problem Depression Time Initiated: 14:30 Suicidal Ideation Time Initiated: 14:30 - Discharge / Continuing Care Discharge to:: Substance Abuse Rehab Behavioral Health Services: Residential treatment Health Needs: Medications/Rx, Alcohol/Drug treatment <Carolann Mcelroy - Last Filed: 06/24/17 12:25> Treatment Plan Review - Problem Depression Date Initiated: 06/24/17 Time Initiated: 11:00 Progress toward outcomes: improved Suicidal Ideation Date Initiated: 06/24/17 Time Initiated: 11:00 Progress toward outcomes: resolved <Tenzin Zayas - Last Filed: 06/24/17 14:39> - Diagnosis (1) Bipolar disorder, now depressed Status: Acute Interventions: 06/24/17 14:39 * Assess/adjust medications daily and /or as needed * See patient on an individual basis 7x/week to assess level of manic behaviors and stability * Discuss risks, benefits, side effects and alternatives of medications * (2) Cocaine use disorder, severe, dependence Status: Acute Interventions: 06/24/17 14:39 * Assess 7x/week regarding severity of withdrawal * Educate regarding risks, benefits, side effects and alternatives of medications * Use Motivational Interviewing for abstinence * Use CBT for relapse prevention * Medication management for withdrawal symptoms * Encourage medication assisted treatment * (3) Post traumatic stress disorder (PTSD) Status: Acute Interventions: 06/24/17 14:39 * Assess/adjust medications daily and /or as needed * See patient on an individual basis 7x/week to assess symptoms of anxiety * Educate patient regarding benefits, side effects and risks of prescribed medications *
[2017-06-24] MEDS: Ergocalciferol 50,000 Intl Units Cap PO SCH (13:51)
--- NOTE | 2017-06-24 14:38 | PCM.PYCHPN ---
Psychiatric Progress Note - Psychiatric Progress Note Patient seen today, length of contact: 15 min Patient Chief Complaint: "I'm OK' Problems Identified/Issues Discussed: The pt is seen, chart reviewed, case discussed with staff. She is somewhat better but still depressed No SEs from meds Lexapro will be increased She is now in agreement with Tuesday transfer to [facility] Medication Change: Yes (meds increased) Medical Record Reviewed: Yes Mental Status Examination - Cognitive Function Orientation: Person, Place, Situation, Time Memory: Intact Attention: WNL Concentration: WNL Association: WNL Fund of Knowledge: WNL - Mood Mood: Neutral - Affect Affect: Constricted - Speech Speech: Soft - Language Language: Word Retrieval - Formal Thought Process Formal Thought Process: No Impairment - Suicidal Ideation Suicidal Ideation: No - Homicidal Ideation Homicidal Ideation: No Goal/Treatment Plan - Goal/Treatment Plan Need for Continued Stay: Remain at risks for inpatient hospitalization, Discharge may exacerbated symptoms, Severe functional impairment Progress Toward Problem(s) and Goals/Treatment Plan: Lexapro for depression Continue [place] and Risperdal for now Li level is 900 mg/d Vit D is low - started All risks, benefits and alternatives of the meds discussed, and the pt agreed and understood. Attend groups and activities Individual therapy daily Psychoeducation and support daily Encourage compliance with meds and after care [place] and CBt for cocaine, MJ and ecstasy Refer back to [facility] Teach healthy lifestyle methods, i.e. diet, exercise, meditation Smoking cessation and patch Estimated Date of D/C: 06/27/17
[2017-06-25] MEDS: Lithium Carbonate ER Tab 450 MG PO SCH ×2 (09:06→21:57)
--- NOTE | 2017-06-25 23:45 | PCM.PYCHPN ---
Psychiatric Progress Note - Psychiatric Progress Note Patient seen today, length of contact: 15 min Medication Change: Yes (meds increased) Medical Record Reviewed: Yes Mental Status Examination - Cognitive Function Orientation: Person, Place, Situation, Time Memory: Intact Attention: WNL Concentration: WNL Association: WNL Fund of Knowledge: WNL - Mood Mood: Neutral - Affect Affect: Constricted - Speech Speech: Soft - Language Language: Word Retrieval - Formal Thought Process Formal Thought Process: No Impairment - Suicidal Ideation Suicidal Ideation: No - Homicidal Ideation Homicidal Ideation: No Goal/Treatment Plan - Goal/Treatment Plan Need for Continued Stay: Remain at risks for inpatient hospitalization, Discharge may exacerbated symptoms, Severe functional impairment Progress Toward Problem(s) and Goals/Treatment Plan: Lexapro for depression Continue [place] and Risperdal for now Li level is 900 mg/d Vit D is low - started All risks, benefits and alternatives of the meds discussed, and the pt agreed and understood. Attend groups and activities Individual therapy daily Psychoeducation and support daily Encourage compliance with meds and after care [place] and CBt for cocaine, MJ and ecstasy Refer back to [facility] Teach healthy lifestyle methods, i.e. diet, exercise, meditation Smoking cessation and patch Estimated Date of D/C: 06/27/17
[2017-06-26 05:56] VITALS: RESP 16; O2SAT 99
[2017-06-26] MEDS: Lithium Carbonate ER Tab 450 MG PO SCH ×2 (09:01→21:10)
--- NOTE | 2017-06-26 12:29 | PCM.PYCHPN ---
Psychiatric Progress Note - Psychiatric Progress Note Patient seen today, length of contact: 15 min Medication Change: Yes (meds increased) Medical Record Reviewed: Yes Mental Status Examination - Cognitive Function Orientation: Person, Place, Situation, Time Memory: Intact Attention: WNL Concentration: WNL Association: WNL Fund of Knowledge: WNL - Mood Mood: Neutral - Affect Affect: Constricted - Speech Speech: Soft - Language Language: Word Retrieval - Formal Thought Process Formal Thought Process: No Impairment - Suicidal Ideation Suicidal Ideation: No - Homicidal Ideation Homicidal Ideation: No Goal/Treatment Plan - Goal/Treatment Plan Need for Continued Stay: Remain at risks for inpatient hospitalization, Discharge may exacerbated symptoms, Severe functional impairment Progress Toward Problem(s) and Goals/Treatment Plan: Lexapro for depression Continue [place] and Risperdal for now Li level is 900 mg/d Vit D is low - started All risks, benefits and alternatives of the meds discussed, and the pt agreed and understood. Attend groups and activities Individual therapy daily Psychoeducation and support daily Encourage compliance with meds and after care [place] and CBt for cocaine, MJ and ecstasy Refer back to [facility] Teach healthy lifestyle methods, i.e. diet, exercise, meditation Smoking cessation and patch Estimated Date of D/C: 06/27/17
[2017-06-27 06:10] VITALS: BP 158/92; PULSE 72; TEMP 98.3
[2017-06-27] MEDS: Lithium Carbonate ER Tab 450 MG PO SCH (09:06)
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
== END 2017-06-27 11:00 | disposition home or self-care (01) | DRG 430 ==
LOC: C.ER 09:41 → C.9E 12:53 → C.5E 13:58
PROVIDERS: ADMIT Psychiatry & Neurology Psychiatry; ATTEND Psychiatry & Neurology Psychiatry
PROC: GZHZZZZ Group Psychotherapy (ICD-10-PCS; principal; 2017-06-15)
PROC: GZ58ZZZ Individual Psychotherapy, Cognitive-Behavioral (ICD-10-PCS; 2017-06-15)
PROC: GZ56ZZZ Individual Psychotherapy, Supportive (ICD-10-PCS; 2017-06-15)
DX: F31.81 Bipolar II disorder (principal); R45.851 Suicidal ideations; F14.20 Cocaine dependence, uncomplicated; F16.90 Hallucinogen use, unspecified, uncomplicated; F12.21 Cannabis dependence, in remission; F43.10 Post-traumatic stress disorder, unspecified; Z62.810 Personal history of physical and sexual abuse in childhood; F17.210 Nicotine dependence, cigarettes, uncomplicated